=== PATIENT | male | born 1995 | race African-American/Black ===

== ENCOUNTER → 2016-10-04 | Outpatient (CLI) | payer SELFPAY ==
[~2016-10-04] MED LIST: ALBU8.5H2 IH; LORA1TAB PO
[2016-10-04 18:08] VITALS: BP 136/63
--- NOTE | 2016-10-04 18:08 | Urgent Care T Sheet Gen (E) ---
Intake General Temperature (Fahrenheit): 98.6 Pulse: 54 Blood Pressure Systolic: 136 Blood Pressure Diastolic: 63 Respirations: 18 SPO2: 100 Chief Complaint: diarrhea with "worms" in stool Source: Patient History of Present Illness Initial Comments Pt notes that for 2 years now he has had diarrhea. He notes that this last 1 week he noted that he had a BM and the stool was loose, yellow in color and there appeared to be a "long white worm" in the stool. He had pain with that BM. Slight bright red blood in that BM. Occasionally has mucus in the stool. Will occasionally have abd pain. He has [place] been out of the [place]/no travel out of [place]. Does not drink well water. No vomiting or Nausea. He notes someday's he can "eat and eat and eat", other days he is not hungry at all. No fever. Reports about 1 week ago he was placed on an antibiotic for an outbreak of a "cold sore"...sounds like he was placed on Keflex. Otherwise no antibiotics. Allergies: Coded Allergies: No Known Drug Allergies (Unverified , 11/23/15) Home Meds Active Scripts Lorazepam 1 Mg Tablet1 Mg PO Q6H PRN ANXIETY #30 TAB Ref 0 Prov:NGUYEN TURNER DO 11/23/15 Albuterol Sulfate (Proair HFA)8.5 Gm Hfa.aer.ad2 Puff IH Q6H PRN WHEEZING #1 INHALER Ref 3 Prov:NGUYEN TURNER DO 11/23/15 Respiratory Constitutional Symptoms: No syptoms reported EENTM: No symptoms reported Respiratory: No symptoms reported Cardiovascular: No symptoms reported Gastrointestinal/Abdominal: See HPI Abdominal pain Diarrhea Genitourinary: No symptoms reported Musculoskeletal: No symptoms reported Skin: No symptoms reported Neurological: No symptoms reported All Other Systems Reviewed Remaining Systems: All other systems reviewed with negative findings Past Rqphlqj-Fgqgua-Mhjqoe Hx Patient's Social History Alcohol Use: Occasionally Uses Smoking Status: Current every day smoker Surgeries/Hospitalizations Hospitalization/Surgery Hx: denies Respiratory Respiratory History: Asthma Cardiovascular Cardiovascular History: None Reproductive System Sexually Transmitted Diseases: No Gastrointestinal GI/Endocrine History: None Diabetes Diabetes: No HEENT Impaired Vision: None Hearing Impaired: None Psychosocial Behavior Disorders: None Physical Exam Physical Exam General Appearance: WD/WN No apparent distress Eyes, Ears, Nose, Throat Ex: PERRL/EOMI Normal ENT inspection TMs normal Pharynx normal Neck Exam: Non tender Full range of motion Normal inspection Normal thyroid Respiratory Exam: Lungs clear Normal breath sounds Cardiovascular Exam: Regular rate, rhythm No edema GI/ Exam: No organomegaly Normal bowel sounds No distention Tenderness ( Mild LLQ tenderness. No rebound or guarding. Pt declined rectal exam. ) Skin Exam: No rashes Departure Urgent Care Impression Chief Complaint: diarrhea with "worms" in stool Impression: Primary Impression: Diarrhea Qualified Code: R19.7 - Diarrhea, unspecified Departure Disposition: 01 HOME OR SELF-CARE Condition: Stable Referrals: JAZMÍN MISHRA MD (PCP) Additional Instructions: Sent patient with lab order for Stool O&P and Stool Culture to the hospital. Pt does not have insurance and wants to keep his costs to a minimum. I discussed with patient that he needs to follow-up with Primary Care Provider early next week to discuss results of culture and complete further work-up. Discussed with patient that if symptoms get worse with fever/abd pain, blood in stools or other concerns arise he needs to go to the ER. Return to ER or UC if symptoms get worse or further concerns. Discharge instructions verbally give to patient. Patient verbalizes understanding of discharge instructions. End of report . ANISA SAHU Oct 04, 2016 18:08
== END ==
LOC: MHUC 16:54
PROVIDERS: ATTEND Physician Assistant
DX: R19.7 Diarrhea, unspecified (principal)
CPT/HCPCS: 99213

== ENCOUNTER 2016-11-13 03:01 | Emergency (ER) | payer SELFPAY ==
[~2016-11-13] VITALS: Ht 185.4 cm; Wt 87.2 kg
--- OUTSIDE RECORDS SUMMARY | 2016-11-13 03:06 | XMS REPORT | Continuity of Care Document ---
Author Author [facility] Address Unknown Phone Unavailable Care Team Providers Care Nurse Special Name Role Phone JAZMÍN MISHRA MD PCP [phone] Insurance Providers Payer Name Policy Number Subscriber Name Relationship Self Pay Robe Sage N 18 Self / Same As Patient Advance Directives Directive Response Recorded Date/Time Advanced Directives No 11/23/15 2:12pm Chief Complaint and Reason for Visit Chief Complaint Cardiac Complaint Reason for Visit Methamphetamine abuse Problems Active Problems Medical Problem Onset Date Status Methamphetamine abuse ~11/23/2015 Acute Medications Current Home Medications Medication Dose Units Route Directions Days/Qty Instructions Start Date Albuterol Sulfate 8.5 Gm 2 Puff RESPIRATORY (INHALATION) Every 6 Hours as needed for Wheezing 1 11/23/15 Lorazepam 1 Mg 1 Mg ORAL Every 6 Hours as needed for Anxiety 30 Social History Query Response Start Date Stop Date Smoking Status Current every day smoker Hospital Discharge Instructions No hospital discharge instructions. Plan of Care Discharge Date 11/23/15 4:28pm Disposition 01 HOME OR SELF-CARE Condition at Discharge Stable Instructions/Education Provided Lorazepam (By mouth) Methamphetamine Abuse (ED) Prescriptions See Medication Section Referrals JAZMÍN MISHRA MD - Additional Instructions/Education Take the lorazepam every 6 hours as needed for anxiety. Follow up with Dr. George and Ashley Mcclain to initiate drug abuse counseling and treatment. Ashley Mcclain [place] [phone] [facility] in [place] [phone] [facility] in [place] [phone] Some of your test results may not be complete prior to your leaving the Emergency Department. The Emergency Department is not authorized to give test results over the phone. Please contact the doctor's office listed in this packet of information for your final results. Follow up with your primary care physician or return to the Emergency Department for worsening or worrisome symptoms. * Emergency Department phone number: [phone], x [phone]* MEDICAL RECORD If you need copies of your X-rays, call [phone]. If you need copies of your medical record, including lab results, a signed authorization for release of records will be required. A telephone call for release of Health Information is not allowed. BILLING Billing can sometimes be confusing and frustrating. To help avoid confusion in the future, please take a moment to acquaint yourself with the billing parties for services. SERVICE BILLING [facility] Physician Services [facility] X-rays [place] [facility] Patients will receive bills for services from the appropriate provider. If you have any questions about your [facility] bill, our staff will be happy to assist you. Please call [phone], and ask for the billing department. THANK YOU for choosing [facility] as your emergency care provider! Care Plan and Goals ~~Discharge Care Plan~~ Problem: Chest, epigastric or chest wall pain Goal: Decreased pain Instructions: Take medication(s) as directed. Follow home discharge instructions. Follow up with primary care physician or forming and assembling supervisor as directed. Functional Status No functional status results. Allergies, Adverse Reactions, Alerts No known allergies. Immunizations No immunization records. Vital Signs Acute Vital Signs Vital Response Date/Time Temperature (Fahrenheit) 98.3 11/23/2015 4:27pm Pulse 72 bpm 11/23/2015 4:27pm Respirations 22 11/23/2015 4:27pm Height 6 ft 1 in Weight 185 lb Body Mass Index 24.0 kg/m^2 Results Laboratory Results Test Name Result Units Flags Reference Collection Date/Time Result Date/ Time Comments White Blood Count 11.83 10^3uL H 4.0-11.0 11/23/2015 2:1011/23/2015 2 :36pm Red Blood Count 4.79 10^6uL 4.50-5.50 11/23/2015 2:1011/23/2015 2: 36pm Hemoglobin 14.9 g/dL 13.5-17.0 11/23/2015 2:1011/23/2015 2:36pm Hematocrit 41.10 % 39.00-50.00 11/23/2015 2:1011/23/2015 2:36pm Mean Corpuscular Volume 86 FL 80-100 11/23/2015 2:11/23/2015 2: 36pm Mean Corpuscular Hemoglobin 31.1 PG 26.0-34.0 11/23/2015 2:102015 2:36pm Mean Corpuscular Hemoglobin Concent 36.3 g/dL 31.0-37.0 11/23/2015 2: 11/23/2015 2:36pm Red Cell Distribution Width 11.3 % L 11.8-15.6 11/23/2015 2:2015 2:36pm Platelet Count 235 10^3uL 150-450 11/23/2015 2:11/23/2015 2:36pm Mean Platelet Volume 9.5 FL 6.0-9.5 11/23/2015 2:1011/23/2015 2: 36pm Neutrophils (%) (Auto) 79 % H 51-67 11/23/2015 2:11/23/2015 2:36pm Lymphocytes (%) (Auto) 13 % L 20-46 11/23/2015 2:1011/23/2015 2:36pm Monocytes (%) (Auto) 7 % 3-11 11/23/2015 2:1011/23/2015 2:36pm Eosinophils (%) (Auto) 0 % 0-4 11/23/2015 2:10pm 11/23/2015 2:36pm Basophils (%) (Auto) 0 % 0-2 11/23/2015 2:10pm 11/23/2015 2:36pm Neutrophils # (Auto) 9.3 X10^3 11/23/2015 2:10pm 11/23/2015 2:36pm Lymphocytes # (Auto) 1.6 X10^3 11/23/2015 2:10pm 11/23/2015 2:36pm Monocytes # (Auto) 0.9 X10^3 11/23/2015 2:10pm 11/23/2015 2:36pm Eosinophils # (Auto) 0.0 10^3uL 11/23/2015 2:10pm 11/23/2015 2:36pm Basophils # (Auto) 0.0 10^3uL 11/23/2015 2:10pm 11/23/2015 2:36pm Prothrombin Time 14.1 SEC 11.6-14.2 11/23/2015 2:10pm 11/23/2015 2: 41pm Prothromb Time International Ratio 1.1 0.8-1.4 11/23/2015 2:10pm 2:41pm Volume Urine Centrifuged 12 mL 11/23/2015 3:45pm 11/23/2015 3:56pm Urine Collection Type CLEAN CATCH 11/23/2015 3:45pm 11/23/2015 3: 56pm Urine Color Yellow 11/23/2015 3:45pm 11/23/2015 3:56pm Urine Clarity Clear 11/23/2015 3:45pm 11/23/2015 3:56pm Urine pH 6.0 5.0 - 8.0 11/23/2015 3:45pm 11/23/2015 3:56pm Urine Specific [place] 1.010 1.005-1.030 11/23/2015 3:45pm 2015 3:56pm Urine Protein Negative Negative 11/23/2015 3:45pm 11/23/2015 3:56pm Urine Glucose (UA) Negative Negative 11/23/2015 3:45pm 11/23/2015 3: 56pm Urine RBC (Auto) Trace-intact H Negative 11/23/2015 3:45pm 11/23/2015 3:56pm Urine Ketones 1+ H Negative 11/23/2015 3:45pm 11/23/2015 3:56pm Urine Nitrite Negative Negative 11/23/2015 3:45pm 11/23/2015 3:56pm Urine Bilirubin Negative Negative 11/23/2015 3:45pm 11/23/2015 3: 56pm Urine Urobilinogen 0.2 mg/dL 0.2-1.0 11/23/2015 3:45pm 11/23/2015 3: 56pm Urine Leukocyte Esterase Negative Negative 11/23/2015 3:45pm 2015 3:56pm Urine RBC 0-2 /HPF 11/23/2015 3:45pm 11/23/2015 4:20pm Urine WBC None Seen /HPF 11/23/2015 3:45pm 11/23/2015 4:20pm Urine Bacteria None Seen /HPF 11/23/2015 3:45pm 11/23/2015 4:20pm Urine Squamous Epithelial Cells 0-2 /LPF 11/23/2015 3:45pm 2015 4:20pm Urine Mucus 1+ 11/23/2015 3:45pm 11/23/2015 4:20pm Sodium Level 139 mmol/L 135-150 11/23/2015 2:10pm 11/23/2015 2:45pm Potassium Level 3.5 mmol/L 3.5-5.1 11/23/2015 2:10pm 11/23/2015 2:45pm Chloride Level 101 mmol/L 98-108 11/23/2015 2:1011/23/2015 2:45pm Carbon Dioxide Level 25 mmol/L 22-29 11/23/2015 2:10pm 11/23/2015 2: 45pm Anion Gap 15.4 MEQ/L H 3-15 11/23/2015 2:10pm 11/23/2015 2:45pm Blood Urea Nitrogen 9 mg/dL 7-18 11/23/2015 2:10pm 11/23/2015 2:45pm Creatinine 0.97 mg/dL 0.8-1.5 11/23/2015 2:10pm 11/23/2015 2:45pm BUN/Creatinine Ratio 9 L 10-20 11/23/2015 2:10pm 11/23/2015 2:45pm Estimat Glomerular Filtration Rate 119.4 11/23/2015 2:102015 2:45pm Estimated GFR (Non- 98.7 11/23/2015 2:102015 2:45pm Glucose Level 101 mg/dL 70-110 11/23/2015 2:1011/23/2015 2:45pm Calculated Osmolality 266 mosm/L L 280-300 11/23/2015 2:1011/23/2015 2:45pm Calcium Level 10.5 mg/dL 8.8-10.8 11/23/2015 2:1011/23/2015 2:45pm Calcium/Ionized Calcium Ratio 4.0 mg/dL 3.8-4.6 11/23/2015 2:1011/22 2:45pm Total Bilirubin 1.4 mg/dL H 0.1-1.0 11/23/2015 2:1011/23/2015 2:45pm Alkaline Phosphatase 66 U/L 38-126 11/23/2015 2:1011/23/2015 2:45pm Aspartate Amino Transf (AST/SGOT) 27 U/L 15-37 11/23/2015 2:102015 2:45pm Alanine Aminotransferase (ALT/SGPT) 20 U/L L 30-65 11/23/2015 2:10 2:45pm Total Creatine Kinase 188 U/L H 55-170 11/23/2015 2:10pm 11/23/2015 2: 45pm Creatine Kinase MB 1.1 ng/mL 0.0-6.0 11/23/2015 2:1011/23/2015 2: 57pm Troponin I 0.018 ng/mL 0.010-0.080 11/23/2015 2:1011/23/2015 2:57pm EZ-Ygf-A-Type Natriuretic Peptide 141 pg/mL H 0-125 11/23/2015 2:10 2:57pm <300 ng/mL - HF unlikely Age <50 years, NT-proBNP >450 pg/mL - HF Likely Age 50-75 yrs, NT-proBNP >900 pg/mL - HF Likely Age >75 yrs, NT-proBNP >1800 - HF likely Total Protein 8.9 g/dL H 6.4-8.5 11/23/2015 2:10pm 11/23/2015 2:45pm Albumin 5.4 g/dL H 3.4-5.0 11/23/2015 2:10pm 11/23/2015 2:45pm Albumin/Globulin Ratio 1.542 1.1-1.8 11/23/2015 2:10pm 11/23/2015 2: 45pm Thyroid Stimulating Hormone (TSH) 1.40 uIU/mL 0.46-4.68 11/23/2015 2: 10pm 11/23/2015 3:14pm Salicylates Level < 1.0 mg/dL L 2.0-20.0 11/23/2015 2:10pm 11/23/2015 2: 45pm Acetaminophen Level < 10.0 mcg/mL L 10.0-30.0 11/23/2015 2:10pm 2015 2:45pm Serum Alcohol < 10.0 mg/dL L 10-80 11/23/2015 2:10pm 11/23/2015 2:45pm Procedures No known history of procedures. Encounters Encounter Location Arrival/Admit Date Discharge/Depart Date Attending Provider Departed Emergency Room [facility] 11/23/15 2:00pm 11/23/15 4:28pm NGUYEN TURNER DO Recent Diagnosis
[2016-11-13] MEDS ORDERED: LORazepam 2 MG/ML (ATIVAN) 1 ML VIAL IM ONE ×2 (03:55→04:00)
[2016-11-13 04:30] LABS: BASOPHILS % (AUTO) 1 % (0-2); EOSINOPHILS # (AUTO) 0.4 10^3uL; EOSINOPHILS % (AUTO) 4 % (0-4); MEAN CORPUSCULAR HEMOGLOBIN 30.9 PG (26.0-34.0); MEAN CORPUSCULAR HGB CONC 34.8 g/dL (31.0-37.0); MEAN CORPUSCULAR VOLUME 89 FL (80-100); MEAN PLATELET VOLUME 9.1 FL (6.0-9.5); MONOCYTES # (AUTO) 1.2 X10^3; MONOCYTES % (AUTO) 12 % (3-11); NEUTROPHILS % (AUTO) 56 % (51-67); PLATELET COUNT 238 10^3uL (150-450); WHITE BLOOD COUNT 10.73 10^3uL (4.0-11.0)
[2016-11-13 04:38] LABS: ALKALINE PHOSPHATASE 70 U/L (38-126); ANION GAP 18.8 MEQ/L (3-15); BUN/CREATININE RATIO 15 (10-20); CALCULATED IONIZED CALCIUM 3.9 mg/dL (3.8-4.6); TOTAL PROTEIN 8.4 g/dL (6.4-8.5)
[2016-11-13 05:13] LABS: BILIRUBIN,URINE Negative (Negative); CLARITY,URINE Clear; COLOR,URINE Amber; GLUCOSE, URINE (UA) Negative (Negative); LEUKOCYTE ESTERASE ,URINE Negative (Negative); PH,URINE 5.5 (5.0 - 8.0); UROBILINOGEN,URINE 0.2 mg/dL (0.2-1.0)
[2016-11-13 05:14] LABS: AMPHETAMINE SCREEN, URINE Positive (Negative); CANNABINOID SCREEN, URINE Positive (Negative); METHAMPHETAMINE SCREEN URINE S POSITIVE (NEGATIVE); OPIATE SCREEN URINE Negative (Negative); PROPOXYPHENE STAT NEGATIVE (NEGATIVE); URINE CENTRIFUGED VOLUME 12 mL
[2016-11-13 05:19] LABS: RBC,URINE 0-2 /HPF
[2016-11-13] MEDS ORDERED: diphenhydrAMINE 50 MG (BENADRYL) CAPSULE PO ONE (05:35)
[2016-11-13 05:39] VITALS: BP 120/44
== END 2016-11-13 05:41 | disposition home or self-care (01) ==
LOC: ED 03:03
DX: F15.10 Other stimulant abuse, uncomplicated (principal); F12.10 Cannabis abuse, uncomplicated; F19.10 Other psychoactive substance abuse, uncomplicated; R44.0 Auditory hallucinations; R44.1 Visual hallucinations; R45.1 Restlessness and agitation
CPT/HCPCS: 36415; 80053; 80307; 80320; 81003; 81015; 84484; 85025; 87806; 93005; 96372; 99282; J2060; 93010; 99284

== ENCOUNTER 2016-11-30 06:40 | Emergency (ER) | payer SELFPAY ==
[~2016-11-30] VITALS: Ht 185.4 cm; Wt 92.8 kg
[2016-11-30] MEDS ORDERED: LORazepam 2 MG/ML (ATIVAN) 1 ML VIAL IM ONE (07:15)
[2016-11-30] MEDS ORDERED: HALOPERIDOL 5 MG/ML (HALDOL) 1 ML AMP IM ONE (07:15)
[2016-11-30] MEDS ORDERED: LORA1TAB PO (07:23)
[2016-11-30] MEDS ORDERED: HALO1TAB4 PO (07:23)
[2016-11-30 07:51] VITALS: BP 168/78
== END 2016-11-30 07:48 | disposition home or self-care (01) ==
LOC: ED 06:41
DX: R20.2 Paresthesia of skin (principal); F15.10 Other stimulant abuse, uncomplicated
CPT/HCPCS: 96372; 99283; J1630; J2060